=== PATIENT | male | born 1965 | race Caucasian/White ===

== ENCOUNTER 2017-09-27 05:35 | Emergency (ER) | payer OTHER ==
[~2017-09-27] VITALS: Ht 177.8 cm; Wt 95.8 kg
[~2017-09-27 05:35] MED LIST: NOHOMEMEDS
[2017-09-27 06:30] LABS: HEMATOCRIT 45.3 % (38.0-50.0); HEMOGLOBIN 15.6 G/DL (12.5-16.6); MCH 31.4 PG (29.0-34.0); MCHC 34.4 G/DL (30.0-36.0); MCV 91.1 FL (86-99); PLATELET COUNT 202 K/uL (156-360); RBC DIS.WIDTH-CV 12.2 % (11.8-14.6); RBC DIS.WIDTH-SD 40.4 % (39-53); RED BLOOD COUNT 4.97 M/uL (4.00-5.50)
[2017-09-27 06:44] LABS: CHLORIDE 101 mEq/L (99-109); POTASSIUM 4.8 mEq/L (3.7-5.4); SODIUM 135 mEq/L (136-147)
[2017-09-27 06:46] LABS: GLUCOSE 174 mg/dL (70-99); TOTAL PROTEIN 7.3 g/dL (6.4-8.3)
[2017-09-27 06:48] LABS: TOTAL BILIRUBIN 1.3 mg/dL (0.0-1.0)
[2017-09-27 06:49] LABS: ALKALINE PHOSPHATASE 94 IU/L (3-129)
[2017-09-27 06:50] LABS: CREATININE 1.7 mg/dL (0.6-1.3); GFR ESTIMATE (CALCULATED) 45 mL/min/ (58.99-99999)
[2017-09-27 06:51] LABS: AST (GOT) 27 IU/L (2-34); UREA NITROGEN (BUN) 23 mg/dL (9-23)
[2017-09-27 06:53] LABS: ALT (GPT) 27 IU/L (3-49)
[2017-09-27 08:20] LABS: APPEARANCE CLEAR ((CLEAR)); BILIRUBIN NEGATIVE; BLOOD MODERATE; COLOR YELLOW ((YELLOW)); GLUCOSE (STRIP) NEGATIVE; KETONES NEGATIVE; LEUKOCYTES NEGATIVE; NITRITE NEGATIVE; PROTEIN (STRIP) 30; SPECIFIC GRAVITY 1.028 (1.000-1.030); UROBILINOGEN 0.2 MG/DL (0.2-1.0)
[2017-09-27 08:46] LABS: BACTERIA RARE /HPF; EPITHELIAL CELLS RARE /HPF; MUCUS TRACE /LPF; UCUL ADDED? NO; WHITE BLOOD CELLS 0-5 /HPF (0-5)
[2017-09-27 10:19] VITALS: BP 126/88
== END 2017-09-27 10:27 | disposition home or self-care (01) ==
LOC: EME 05:35
DX: N20.2 Calculus of kidney with calculus of ureter (principal); Z98.890 Other specified postprocedural states; R11.2 Nausea with vomiting, unspecified; Z87.442 Personal history of urinary calculi
CPT/HCPCS: 74018; 80053; 81003; 85027; 99281; 99285; J1885; J2405; J7030

== ENCOUNTER 2017-10-06 05:51 | Day surgery (SDC) | payer OTHER ==
[~2017-10-06] VITALS: Ht 180.3 cm; Wt 92.1 kg
[2017-10-06 06:15] VITALS: BP 157/99
[2017-10-06 08:31] VITALS: BP 148/95
[2017-10-06 12:20] VITALS: BP 141/89
[2017-10-06] MEDS ORDERED: ENDOCET 5-3251 EACH PO (13:14)
== END 2017-10-06 13:56 | disposition home or self-care (01) ==
LOC: SDC 05:51 → 3EAST 05:52 → SDC 17:15
DX: N13.2 Hydronephrosis with renal and ureteral calculous obstruction (principal); I10 Essential (primary) hypertension; E78.00 Pure hypercholesterolemia, unspecified
CPT/HCPCS: 74018; 93005; C2625; G0378; J0330; J1580; J2175; J2250; J2405; J3010; J7120